=== PATIENT | female | born 1950 | race Caucasian/White ===

== ENCOUNTER 2018-01-25 11:28 | Emergency (ER) | payer MEDICARE, OTHER ==
[~2018-01-25] VITALS: Ht 149.9 cm; Wt 65.6 kg
[~2018-01-25 11:28] MED LIST: LISI-363 PO; NORV10TA PO
[2018-01-25 11:48] VITALS: BP 168/78; PULSE 85; RESP 16; TEMP 98; O2SAT 98
[2018-01-25] MEDS ORDERED: VIST25CA PO (12:10)
[2018-01-25] MEDS ORDERED: PRED20 PO (12:10)
[2018-01-25] MEDS ORDERED: AMOX875T PO (12:10)
[2018-01-25] MEDS ORDERED: PERM5CRE11 TOPICAL (12:10)
--- NOTE | 2018-01-25 12:16 | PD ---
HPI Chief Complaint: ENT Complaint Time Seen by Provider: 12:04 Travel History International Travel<30 days: No Contact w/Intl Traveler<30days: No Traveled to known affect area: No History of Present Illness HPI 67-year-old female that presents to the ED for evaluation of right ear pain and pressure as well as itchy rash that she's had for months in her back and shoulders and legs. The patient did hear started 2 days ago. Per patient is pressure-like. She states and congestion and some cough. No urinary or bowel movement issues. She states that for the past 2 months she's been having an itchy rash on the back. Per patient gets worse tonight. She's been scratching and feels like a burning. Per patient she's not sure if is related to stress or something else. She denies any new medications or soaps. She denies anybody else in the house having this. She has no allergies to medication. Other medical issues. Has not seen anybody for the rash. Pain per patient 7 out of 10 on the right ear. PFSH Past Medical History Arthritis: Yes Cardiovascular Problems: Yes (htn on meds) Diminished Hearing: No Hypertension: Yes Immunizations Current: No (NO MONEY FOR PREVNETIVE CARE) ?: Not Menopausal: Yes Past Surgical History Section: Yes Social History Alcohol Use: Yes (APPROX 2 BEERS A DAY) Tobacco Use: Yes (1 PPD) Substance Use: No Allergies-Medications (Allergen,Severity, Reaction): Coded Allergies: No Known Allergies (Unverified Adverse Reaction, Unknown, 01/25/18) Reported Meds & Prescriptions Reported Meds & Active Scripts Active Elimite Topical (Permethrin) 5% Cream 1 Applic TOPICAL ONCE Vistaril (Hydroxyzine Pamoate) 25 Mg Cap 25 Mg PO TID PRN Prednisone 20 Mg Tab 20 Mg PO BID 5 Days Amoxicillin 875 Mg Tab 875 Mg PO BID 10 Days Norvasc (Amlodipine Besylate) 10 Mg Tab 1 Tab PO DAILY Lisinopril 20 mg (Lisinopril) 20 Mg Tab 20 Mg PO DAILY Review of Systems Except as stated in HPI: all other systems reviewed are Neg Physical Exam Narrative GENERAL: Well-nourished, well-developed patient in no apparent distress. SKIN: Warm and dry. Patient has kapadia of scratching on the back. Patient does have small bite like kapadia on his back. Erythematous but not painful. No pustules. Appear to be in both sides of the back. HEAD: Atraumatic. Normocephalic. EYES: Pupils equal and round reactive to light and accommodation. No scleral icterus. No injection or drainage. ENT: No nasal bleeding or discharge. Mucous membranes pink and moist. Right TM is red and bulging, left TM is intact.. No mastoid tenderness. Ear canals are intact bilaterally. No lymphadenopathy. Nostril mucosa is red and moist with clear mucus noted. No sinus tenderness to palpation noted. Tonsils are not enlarged or swollen. No ulvua Deviation. Tongue is midline. NECK: Trachea midline. No JVD. No meningeal signs noted CARDIOVASCULAR: Regular rate and rhythm. RESPIRATORY: No accessory muscle use. Clear to auscultation. Breath sounds equal bilaterally. GASTROINTESTINAL: Abdomen soft, non-tender, nondistended. Hepatic and splenic margins not palpable. MUSCULOSKELETAL: Extremities without clubbing, cyanosis, or edema. No obvious deformities. Full range of motion of the upper and lower extremities bilaterally. 2+ pulses bilaterally. NEUROLOGICAL: Awake and alert. No obvious cranial nerve deficits. Motor grossly within normal limits. Five out of 5 muscle strength in the arms and legs. Normal speech. PSYCHIATRIC: Appropriate mood and affect; insight and judgment normal. Data Data Last Documented VS Vital Signs Date Time Temp Pulse Resp B/P (MAP) Pulse Ox O2 Delivery O2 Flow Rate FiO2 01/25/18 11:48 98.0 85 16 168/78 (108) 98 Orders Orders Ed Discharge Order (01/25/18 12:11) MDM Medical Decision Making Medical Screen Exam Complete: Yes Emergency Medical Condition: Yes Medical Record Reviewed: Yes Differential Diagnosis Dermatitis versus scabies versus otitis media versus otitis externa versus stress reaction Narrative Course 67-year-old female that presents to the ED for evaluation of ear pain and rash on back. Patient was properly examined and was found to have signs and symptoms consistent with otitis media what appears to be dermatitis on the back. Doesn't really follow a pattern. Patient states that she's been under stress recently. Could be stress reaction. I'll treat with amoxicillin, prednisone and Vistaril to help with itchiness. I cannot completely rule out insect related problems. I will try permethrin cream on the patient to cover for this. Patient is to follow with PCP. See ED if worsening symptoms. Diagnosis Primary Impression: Otitis media Qualified Codes: H66.001 - Acute suppurative otitis media without spontaneous rupture of ear drum, right ear Additional Impression: Dermatitis Patient Instructions: General Instructions Additional Instructions: Take medications as prescribed. Follow with PCP. See ED for worsening symptoms. Med/Other Pt SpecificInfo: Prescription(s) given Scripts Permethrin Topical (Elimite Topical) 5% Cream 1 APPLIC TOPICAL ONCE for Scabies, #1 TUBE 0 Refills Prov: La Nena Boss MD 01/25/18 Hydroxyzine Pamoate (Vistaril) 25 Mg Cap 25 MG PO TID Y for ITCHING, #14 CAP 0 Refills Prov: La Nena Boss MD 01/25/18 Prednisone (Prednisone) 20 Mg Tab 20 MG PO BID for 5 Days, #10 TAB 0 Refills Prov: La Nena Boss MD 01/25/18 Amoxicillin (Amoxicillin) 875 Mg Tab 875 MG PO BID for Infection for 10 Days, #20 TAB 0 Refills Prov: La Nena Boss MD 01/25/18 Disposition: 01 DISCHARGE HOME Condition: Stable Lv Abreu Jan 25, 2018 12:16
== END 2018-01-25 12:40 | disposition home or self-care (01) ==
LOC: PHEFT 11:28
DX: H66.001 Acute suppurative otitis media without spontaneous rupture of ear drum, right ear (principal); L30.9 Dermatitis, unspecified; M19.90 Unspecified osteoarthritis, unspecified site; I10 Essential (primary) hypertension; F17.210 Nicotine dependence, cigarettes, uncomplicated
CPT/HCPCS: 99283